=== PATIENT | male | born 2000 | race Caucasian/White ===

== ENCOUNTER 2020-11-22 12:32 | Emergency (ER) | payer BC ==
--- NOTE | 2020-11-22 12:52 | EDM.PDOC ---
ED HPI GENERAL MEDICAL PROBLEM - General Chief Complaint: General Stated Complaint: CP Time Seen by Provider: 11/22/20 12:32 Source of Information: Reports: Patient History Limitations: Reports: No Limitations - History of Present Illness INITIAL COMMENTS - FREE TEXT/NARRATIVE: 20-year-old male no past medical history presents for left-sided chest and rib pain. He has noted the pain for the last 2 days. 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 The pain is worse with a deep breath then. He denies any shortness of breath or cough. Denies any lower extremity swelling or pain. No history of blood clots. left ribs Pain Score (Numeric/FACES): 2 - Related Data Allergies Allergy/AdvReac Type Severity Reaction Status Date / Time No Known Allergies Allergy Verified 11/22/20 13:37 Home Meds: Home Meds Cyclobenzaprine [Flexeril] 10 mg PO TID PRN #20 tab 11/22/20 [Rx] Ibuprofen [Motrin] 600 mg PO Q6H PRN #20 tab 11/22/20 [Rx] Past Medical History Psychiatric History: Reports: Depression Social & Family History - Family History Family Medical History: No Pertinent Family History ED ROS GENERAL - Review of Systems Review Of Systems: Comprehensive ROS is negative, except as noted in HPI. ED EXAM, GENERAL - Physical Exam Exam: See Below Exam Limited By: No Limitations General Appearance: Alert, WD/WN, No Apparent Distress Throat/Mouth: Normal Voice, No Airway Compromise Head: Atraumatic, Normocephalic Neck: Normal Inspection Respiratory/Chest: No Respiratory Distress, Lungs Clear, Normal Breath Sounds, No Accessory Muscle Use Cardiovascular: Normal Peripheral Pulses, Regular Rate, Rhythm, No Edema Extremities: Normal Inspection Neurological: Alert, Normal Cognition, Normal Gait Psychiatric: Normal Affect, Normal Mood Skin Exam: Warm, Dry, Intact, Normal Color #1 Interpretation EKG Date: 11/22/20 Time: 13:18 Rhythm: NSR Rate (Beats/Min): 51 Mitchell: Normal P-Wave: Present QRS: Normal ST-T: Normal QT: Normal NH/PQ Interval: 177 Comparison: NA - No Prior EKG EKG Interpretation Comments: Normal EKG, sinus bradycardia Course - Vital Signs Last Recorded V/S: Last Vital Signs Temp 96.7 F L 11/22/20 13:00 Pulse 67 06/12/21 13:00 Resp 18 11/22/20 13:00 BP 111/64 11/22/20 13:00 Pulse Ox 97 11/22/20 13:00 - Orders/Labs/Meds Orders: Active Orders 24 hr Category Date Time Status EKG Documentation Completion [RC] STAT Care 11/22/20 12:51 Active Acetaminophen [Tylenol Extra Strength] Med 11/22/20 13:07 Once 1,000 mg PO ONETIME ONE Cyclobenzaprine [Flexeril] Med 11/22/20 13:07 Once 10 mg PO ONETIME ONE Ibuprofen [Motrin] Med 11/22/20 13:07 Once 600 mg PO ONETIME ONE dexAMETHasone [Decadron] Med 11/22/20 13:07 Once 10 mg IVPUSH ONETIME ONE Medication Orders Acetaminophen (Acetaminophen 500 Mg Tab) 1,000 mg PO ONETIME ONE Stop: 11/22/20 13:08 Last Admin: 11/22/20 13:29 Dose: 1,000 mg Documented by: ZEUS Cyclobenzaprine HCl (Cyclobenzaprine 10 Mg Tab) 10 mg PO ONETIME ONE Stop: 11/22/20 13:08 Last Admin: 11/22/20 13:29 Dose: 10 mg Documented by: ZEUS Dexamethasone (Dexamethasone 10 Mg/Ml Sdv) 10 mg IVPUSH ONETIME ONE Stop: 11/22/20 13:08 Last Admin: 11/22/20 13:29 Dose: 10 mg Documented by: ZEUS Ibuprofen (Ibuprofen 600 Mg Tab) 600 mg PO ONETIME ONE Stop: 11/22/20 13:08 Last Admin: 11/22/20 13:29 Dose: 600 mg Documented by: ZEUS Meds: Medications Generic Name Dose Route Start Last Admin Trade Name Freq PRN Reason Stop Dose Admin Acetaminophen 1,000 mg 11/22/20 13:07 11/22/20 13:29 Acetaminophen 500 Mg Tab PO 11/22/20 13:08 1,000 mg ONETIME ONE Administration Cyclobenzaprine HCl 10 mg 11/22/20 13:07 11/22/20 13:29 Cyclobenzaprine 10 Mg Tab PO 11/22/20 13:08 10 mg ONETIME ONE Administration Dexamethasone 10 mg 11/22/20 13:07 11/22/20 13:29 Dexamethasone 10 Mg/Ml Sdv IVPUSH 11/22/20 13:08 10 mg ONETIME ONE Administration Ibuprofen 600 mg 11/22/20 13:07 11/22/20 13:29 Ibuprofen 600 Mg Tab PO 11/22/20 13:08 600 mg ONETIME ONE Administration - Re-Assessments/Exams Free Text/Narrative Re-Assessment/Exam: 11/22/20 13:09 We will get EKG and chest x-ray to rule out emergent cardiopulmonary pathology. We will treat symptomatically with Motrin, Tylenol, Decadron, Flexeril. 11/22/20 14:31 X-ray imaging and EKG are unremarkable. Will discharge patient home with short course of Motrin and Flexeril. Departure - Departure Time of Disposition: 14:31 Disposition: Home, Self-Care 01 Condition: Good Clinical Impression: Chest pain Qualifiers: Chest pain type: unspecified Qualified Code(s): R07.9 - Chest pain, unspecified - Discharge Information Prescriptions: Cyclobenzaprine [Flexeril] 10 mg PO TID PRN #20 tab PRN Reason: Muscle Spasm - Painful Ibuprofen [Motrin] 600 mg PO Q6H PRN #20 tab PRN Reason: Pain Instructions: Nonspecific Chest Pain, Adult Referrals: PCP,Not In Area [Primary Care Provider] - Forms: ED Department Discharge Additional Instructions: The following information is given to patients seen in the emergency department who are being discharged to home. This information is to outline your options for follow-up care. We provide all patients seen in our emergency department with a follow-up referral. The need for follow-up, as well as the timing and circumstances, are variable depending upon the specifics of your emergency department visit. If you don't have a primary care physician on staff, we will provide you with a referral. We always advise you to contact your personal physician following an emergency department visit to inform them of the circumstance of the visit and for follow-up with them and/or the need for any referrals to a consulting specialist. The emergency department will also refer you to a specialist when appropriate. This referral assures that you have the opportunity for follow-up care with a specialist. All of these measure are taken in an effort to provide you with optimal care, which includes your follow-up. Under all circumstances we always encourage you to contact your private physician who remains a resource for coordinating your care. When calling for follow-up care, please make the office aware that this follow-up is from your recent emergency room visit. If for any reason you are refused follow-up, please contact the [facility] Emergency Department at and asked to speak to the emergency department charge nurse. Please follow up with your primary care physician. If you do not have a primary care physician, see below: [facility] [id number], [place] [id number] [facility] [address] [place] [address] [facility] [id number], [place] [address] Sepsis Event Note (ED) - Focused Exam Vital Signs: Vital Signs Temp Pulse Resp BP Pulse Ox 11/22/20 13:00 96.7 F L 67 18 111/64 97 - My Orders Last 24 Hours: My Active Orders 11/22/20 12:51 EKG Documentation Completion [RC] STAT 11/22/20 13:07 Acetaminophen [Tylenol Extra Strength] 1,000 mg PO ONETIME ONE Cyclobenzaprine [Flexeril] 10 mg PO ONETIME ONE Ibuprofen [Motrin] 600 mg PO ONETIME ONE dexAMETHasone [Decadron] 10 mg IVPUSH ONETIME ONE - Assessment/Plan Last 24 Hours: My Active Orders 11/22/20 12:51 EKG Documentation Completion [RC] STAT 11/22/20 13:07 Acetaminophen [Tylenol Extra Strength] 1,000 mg PO ONETIME ONE Cyclobenzaprine [Flexeril] 10 mg PO ONETIME ONE Ibuprofen [Motrin] 600 mg PO ONETIME ONE dexAMETHasone [Decadron] 10 mg IVPUSH ONETIME ONE
[2020-11-22] MEDS ORDERED: Acetaminophen 500 MG Tab PO ONE (13:07)
[2020-11-22] MEDS ORDERED: Dexamethasone 10 MG/ML SDV IVPUSH ONE (13:07)
[2020-11-22] MEDS ORDERED: Ibuprofen 600 MG Tab PO ONE (13:07)
[2020-11-22] MEDS ORDERED: Cyclobenzaprine 10 MG Tab PO ONE (13:07)
--- NOTE | 2020-11-22 14:13 | CR ---
Indication: Left-sided rib pain. Technique: AP portable view of the chest. Comparison: None Findings: The heart is normal in size. The lungs are clear. No infiltrate, pleural effusion, or pneumothorax is identified. Impression: No acute cardiopulmonary process Dictated by Claudia Mar MD @ 11/22/2020 2:12:[address] Claudia Mar @ Nov 22 2020 2:12PM
== END 2020-11-22 14:42 | disposition home or self-care (01) ==
LOC: MW.ED 12:32
DX: R07.9 Chest pain, unspecified (principal); R07.81 Pleurodynia
CPT/HCPCS: 71045; 93005; 96374; 99283; A9270; J1100; 93010